=== PATIENT | female | born 1965 | race Caucasian/White ===

== ENCOUNTER → 2020-06-25 08:51 | Outpatient (CLI) | payer OTHER, SELFPAY ==
[2020-06-25 16:58] LABS: SARS-CoV-2 RNA PCR Negative
== END ==
PROVIDERS: PCP Family Medicine; Visit Provider Physician Assistant
DX: Z20.822 Contact with and (suspected) exposure to COVID-19 (principal); R09.89 Other specified symptoms and signs involving the circulatory and respiratory systems; R05 Cough; R07.89 Other chest pain
CPT/HCPCS: C9803; U0003; U0005

== ENCOUNTER → 2020-09-12 00:35 | Outpatient (CLI) | payer OTHER, SELFPAY ==
[2020-09-12 21:49] LABS: SARS-CoV-2 RNA PCR Positive
== END ==
PROVIDERS: PCP Family Medicine; Visit Provider Physician Assistant
DX: U07.1 COVID-19 (principal)
CPT/HCPCS: C9803; U0003; U0005

== ENCOUNTER 2022-01-04 18:45 | Emergency (ER) | payer OTHER, SELFPAY ==
[2022-01-04] VITALS (12 sets, daily range): BP systolic 160–181; BP diastolic 89–97; PULSE 94–108; RESP 13–25; O2SAT 98–100
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
[2022-01-04] MEDS: HYDROcodone/acetaminophen (*CRX) 5-325 MG TABLET 2 TAB PO (19:49)
[2022-01-04] MEDS: LORazepam (*CRX) 1 MG TABLET PO (21:03)
[2022-01-04 21:11] LABS: Basophils Absolute Auto 0.1 K/mm3 (0.0-0.1); Basophils Percent Auto 0.9 % (0.2-1.2); Eosinophils Absolute Auto 0.3 K/mm3 (0-0.3); Hematocrit 38.8 % (37.0-47.0); Hemoglobin 12.4 g/dL (12.0-15.0); Immature Granulocyte Absolute 0.04 K/mm3 (0.00-0.031); Immature Granulocyte Percent A 0.4 % (0-0.5); Lymphocytes Absolute Auto 1.55 K/mm3 (0.9-3.2); Mean Corpuscular Hemoglobin 27.4 pg (26-34); Mean Corpuscular Volume 85.7 fl (80-100); Mean Platelet Volume 11.3 fl (7.4-10.4); Monocytes Absolute Auto 0.7 K/mm3 (0.1-0.6); Monocytes Percent Auto 7.1 % (2.6-8.5); Neutrophils Absolute Auto 7.6 K/mm3 (1.3-6.7); Neutrophils Percent Auto 73.6 % (45.5-73.1); Platelet Count Result 124 k/mm3 (150-375); Red Blood Count 4.53 M/mm3 (4.2-5.4); Red Cell Distribution Width 13.5 % (11.5-14.5); White Blood Count 10.3 K/mm3 (4.5-10.0)
[2022-01-04 21:22] LABS: Anion Gap 11 mmol/L (8-16); Blood Urea Nitrogen 15 mg/dL (7-17); Carbon Dioxide 25 mmol/L (22-30); Chloride 104 mmol/L (98-107); Estimated CRCL calculation 94 ml/min; Estimated Glomerular Filt Rate > 60; Glucose 119 mg/dL (65-110); Potassium 3.2 mmol/L (3.4-5.0); Sodium 140 mmol/L (137-145)
[2022-01-04] MEDS: ALBUTEROL SULFATE (*SP) INHALER 1 PUFF (21:26)
== END 2022-01-04 21:58 | disposition home or self-care (01) ==
PROVIDERS: Emergency Provider Emergency Medicine; PCP Family Medicine
DX: S60.212A Contusion of left wrist, initial encounter (principal); S80.02XA Contusion of left knee, initial encounter; V89.2XXA Person injured in unspecified motor-vehicle accident, traffic, initial encounter; J45.909 Unspecified asthma, uncomplicated
CPT/HCPCS: 36415; 71045; 73110; 73562; 80048; 85025; 99284; A9270